=== PATIENT | female | born 1945 | race Caucasian/White ===

== ENCOUNTER → 2018-11-06 | Outpatient (CLI) | payer MEDICARE | END | disposition home or self-care (01) | LOC: RAD 11:00 | DX: Z13.820 Encounter for screening for osteoporosis (principal); M81.0 Age-related osteoporosis without current pathological fracture; Z78.0 Asymptomatic menopausal state; Z85.3 Personal history of malignant neoplasm of breast ==

== ENCOUNTER → 2021-08-09 | Outpatient (CLI) | payer MEDICARE ==
[~2021-08-09] MED LIST: CALCIUM + VITA1 EAC2 PO; CITRUCEL479 GM PO; CLARITIN10 MG PO; COQ-10100 MG PO; FISH OIL 1,0001 EAC3 PO; FOSAMAX70 M1 PO; LEVOTHYROXINE50 MCG PO; TURMERIC CURCU1 EACH PO; VITAMIN C500 M8 PO; VITAMIN D325 MCG PO; WOMEN'S DAILY1 EAC3 PO
== END | disposition home or self-care (01) ==
LOC: CARD 08-04 09:00
PROVIDERS: ATTEND Internal Medicine Cardiovascular Disease
DX: I10 Essential (primary) hypertension (principal); E78.2 Mixed hyperlipidemia; R07.89 Other chest pain

== ENCOUNTER → 2023-01-16 | Outpatient (CLI) | payer MEDICARE | END | disposition home or self-care (01) | LOC: RAD 14:51 | PROVIDERS: ATTEND Chiropractor | DX: M47.816 Spondylosis without myelopathy or radiculopathy, lumbar region (principal); M25.78 Osteophyte, vertebrae ==